=== PATIENT | male | born 1940 | race Caucasian/White ===

== ENCOUNTER 2019-08-01 12:09 | Inpatient (IN) | payer MEDICARE, BC ==
[~2019-08-01] VITALS: Ht 167.6 cm; Wt 77.1 kg
[2019-08-01 12:24] VITALS: BP 86/57
[2019-08-01 12:57] LABS: BASO % 0.3 % (0.0-1.0); EOS # 0.2 10*3/uL (0.0-0.4); EOS % 3.2 % (1.0-4.0); HEMATOCRIT 47.1 % (42.0-52.0); HEMOGLOBIN 15.7 g/dl (14.0-18.0); LYMPH # 1.4 10*3/uL (1.3-4.4); LYMPH % 19.7 % (27.0-41.0); MEAN CELL VOLUME 98.1 fl (80.0-94.0); MEAN CORPUSCULAR HGB 32.7 pg (27.0-31.0); MEAN CORPUSCULAR HGB CONC 33.3 g/dl (33.0-37.0); MEAN PLATELET VOLUME 10.1 fl (9.6-12.3); MONO # 0.6 10*3/uL (0.1-1.0); MONO % 8.7 % (3.0-9.0); NEUT # 4.7 10*3/uL (2.3-7.9); NEUT % 67.8 % (47.0-73.0); PLATELET COUNT AUTOMATED 215 10*3/uL (130-400); RED CELL DISTRI WIDTH 13.2 % (0-14.5); WHITE BLOOD COUNT 6.9 10*3/uL (4.8-10.8)
[2019-08-01 13:08] LABS: ACT PARTIAL THROMBO TIME 25.9 SECONDS (20.0-32.1); INTERNATIONAL NORM RATIO 1.3 (2.0-3.5)
[2019-08-01 13:09] LABS: ALBUMIN 3.7 gm/dl (3.1-4.5); ALKALINE PHOSPHATASE 41 U/L (45-117); BUN 29 mg/dl (7-24); CHLORIDE 103 mmol/L (98-107); CREATININE 1.11 mg/dL (0.70-1.30); LIPASE 60 U/L (73-393); POTASSIUM 4.2 mmol/L (3.5-5.1); SGOT/AST 19 IU/L (3-35); SGPT/ALT 25 U/L (12-78); SODIUM 137 mmol/L (136-145); TOTAL PROTEIN 7.3 gm/dL (6.4-8.2)
[2019-08-01 13:10] VITALS: BP 117/48
[2019-08-01 13:11] LABS: TROPONIN I < 0.015 ng/ml (<0.045)
[2019-08-01 13:23] LABS: BILIRUBIN 1+ (NEGATIVE); BLOOD NEGATIVE (NEGATIVE); CLARITY SL CLOUDY (CLEAR); COLOR YELLOW (YELLOW); GLUCOSE NEGATIVE (NEGATIVE); KETONE NEGATIVE (NEGATIVE); LEUKO ESTERASE NEGATIVE (NEGATIVE); NITRITE NEGATIVE (NEGATIVE); SPECIFIC GRAVITY 1.025 (1.005-1.030)
[2019-08-01 13:44] VITALS: BP 110/60
[2019-08-01 13:45] LABS: BACTERIA TRACE; MUCOUS 1+
--- NOTE | 2019-08-01 13:46 | NUR ---
DR JOHNSON NOTIFIED OF THE PT C/O A BURNING SENSATION ON THE LEFT SIDE OF HIS MOUTH. PT SAID ITS ABOUT A 11/03.
[2019-08-01 15:13] VITALS: BP 123/62
--- NOTE | 2019-08-01 18:05 | NUR ---
I CALLED THE RESIDENT AND ASKED HIM TO ORDER THE PATIENTS EVENING MEDS PER THE PT REQUEST. IT WAS ORDERED
--- NOTE | 2019-08-01 20:18 | NUR ---
THIS NURSE CALLED THE NURSING SUPERVISION AND TOLD HER THAT THE PT WOULD LIKE DTO HAVE AN INPATIENT BED BROUGHT DOWN TO SLEEP IN [facility]. SHE SAID SHE WOULD SEE WHAT SHE COULD DO. VERBAL UNDERSTANDING WAS NOTED FROM THE PATIENT
--- NOTE | 2019-08-01 20:40 | NUR ---
THE PATIENTS LEFT FOR THE EVENING. HE IS LYING ON THE BED RESTING. THE CALL LIGHT IS ON THE BED BESIDE HIM. NO NEW VOICED C/O. WILL CONTINUE TO MONITOR
[2019-08-01 21:09] VITALS: BP 134/55
--- NOTE | 2019-08-01 21:09 | NUR ---
A 79, admitted to 5E, under the services of EDITH Chino DO with a diagnosis of NEAR SYNCOPE. Chief complaint is GENERALIZED WEAKNESS, DIZZINESS, LOWER LIP NUMBNESS. Patient arrived via stretcher from ER. Monitor applied. Initial assessment completed. Vital signs taken and recorded. EDITH CHINO DO notified of admission to the unit. Orders received. See assessment for past medical history, medications and allergies. Patient and/or family oriented to unit. Clothing/patient valuable form completed. AGUSTÍN JO
[2019-08-01] MEDS ORDERED: AMOXICILLIN500 M2 PO (22:27)
[2019-08-01] MEDS ORDERED: CHLORHEXIDINE473 M1 PO (22:27)
[2019-08-01] MEDS ORDERED: FUROSEMIDE40 MG PO (22:28)
[2019-08-01] MEDS ORDERED: CARVEDILOL25 MG PO (22:28)
[2019-08-01] MEDS ORDERED: PRAVASTATIN SOD40 MG PO (22:31)
[2019-08-01] MEDS ORDERED: ENTRESTO 97 MG1 EACH PO (22:31)
[2019-08-01] MEDS ORDERED: COUMADIN2.5 M1 PO (22:40)
[2019-08-01] MEDS ORDERED: ASPIRIN CHEWABL81 MG PO (22:44)
[2019-08-02] VITALS: BP 90/42
[2019-08-02 01:10] VITALS: BP 98/60
[2019-08-02 04:00] VITALS: BP 90/32
--- NOTE | 2019-08-02 05:06 | NUR ---
DR BALBUENA NOTIFIED OF BP NEW ORDERS TO INCREASE FLUIDS
[2019-08-02 06:51] VITALS: BP 112/56
[2019-08-02 08:00] VITALS: BP 109/59
--- NOTE | 2019-08-02 09:03 | NUR ---
PER PATIENT'S SHE BROUGHT IN HOME DOSE OF ENTRESTO AND PATIENT TOOK IT AT 0730 THIS AM.
[2019-08-02 09:16] LABS: BASO % 0.3 % (0.0-1.0); EOS # 0.3 10*3/uL (0.0-0.4); EOS % 3.3 % (1.0-4.0); HEMATOCRIT 45.7 % (42.0-52.0); HEMOGLOBIN 15.4 g/dl (14.0-18.0); LYMPH # 1.8 10*3/uL (1.3-4.4); LYMPH % 23.3 % (27.0-41.0); MEAN CELL VOLUME 97.2 fl (80.0-94.0); MEAN CORPUSCULAR HGB 32.8 pg (27.0-31.0); MEAN CORPUSCULAR HGB CONC 33.7 g/dl (33.0-37.0); MEAN PLATELET VOLUME 9.9 fl (9.6-12.3); MONO # 0.5 10*3/uL (0.1-1.0); MONO % 6.9 % (3.0-9.0); NEUT # 5.2 10*3/uL (2.3-7.9); NEUT % 65.8 % (47.0-73.0); PLATELET COUNT AUTOMATED 197 10*3/uL (130-400); RED CELL DISTRI WIDTH 13.2 % (0-14.5); WHITE BLOOD COUNT 7.9 10*3/uL (4.8-10.8)
[2019-08-02 09:25] LABS: INTERNATIONAL NORM RATIO 1.2 (2.0-3.5)
[2019-08-02 09:28] LABS: BUN 24 mg/dl (7-24); CHLORIDE 106 mmol/L (98-107); CREATININE 0.99 mg/dL (0.70-1.30); POTASSIUM 3.8 mmol/L (3.5-5.1); SODIUM 139 mmol/L (136-145)
[2019-08-02 09:31] LABS: CHOLESTEROL 117 mg/dL (<200); TRIGLYCERIDES 144 mg/dl (<150); VLDL CHOLESTEROL 29 mg/dL (6-40)
[2019-08-02 09:39] LABS: FREE T4 0.91 ng/dl (0.76-1.46); HDL CHOLESTEROL 35 mg/dl (40-60); LDL CHOLESTEROL 53 mg/dL (9-159)
[2019-08-02 09:59] LABS: VITAMIN D, 25-HYDROXY 11.5 ng/mL (30-100)
[2019-08-02 12:00] VITALS: BP 86/58
--- NOTE | 2019-08-02 12:20 | NUR ---
Community Nutrition Educator in to talk to patient. Patient states lives at HOME with . There are FEW steps in the home. Physician: CHARLIE Pharmacy: [facility] health services: NONE Patient's level of ADLs: INDEPENDENT Patient has working utilities: YES DME: NONE Follow-up physician's appointment after d/c: WILL BE MADE BY HOSPITALIST NURSE DIRECTOR ON DISCHARGE Does patient want to access PORTAL?: NO Discharge plan PT LIVES AT HOME WITH HIS AND IS INDEPENDENT IN CARE. PT AND DENY NEEDS ON DISCHARGE. THEY ARE REQUESTING HIS RECORDS TO TAKE TO [place] WITH HIM ON WEDNESDAY TO HIS ROUTINE CARDIOLOGY APPOINTMENT. INFORMED EDINSON GUTIERREZ AND LEO BURT THAT PT IS REQUESTING A COPY OF RECORDS ON DISCHARGE. WILL CONTINUE TO FOLLOW. WILL HAVE A RIDE HOME PER PT AND .. MCKENZIE BARTLETT
--- NOTE | 2019-08-02 16:39 | NUR ---
PT DENIED NEED FOR WHEELCHAIR AND AMBULATED OFF THE FLOOR. RECORDS PROVIDED PER HIS REQUEST.
== END 2019-08-02 16:39 | disposition home or self-care (01) | DRG 315 ==
LOC: ED 12:09 → EDHOLD 15:10 → 5E 15:10
PROVIDERS: Emergency Medicine; Internal Medicine; ADMIT Internal Medicine
DX: I95.9 Hypotension, unspecified (principal); D68.59 Other primary thrombophilia; R55 Syncope and collapse; R73.9 Hyperglycemia, unspecified; I50.9 Heart failure, unspecified; E83.41 Hypermagnesemia; R00.1 Bradycardia, unspecified; E66.3 Overweight; I48.0 Paroxysmal atrial fibrillation; E78.5 Hyperlipidemia, unspecified; F41.9 Anxiety disorder, unspecified; Z95.810 Presence of automatic (implantable) cardiac defibrillator; I25.2 Old myocardial infarction; Z95.5 Presence of coronary angioplasty implant and graft; Z90.49 Acquired absence of other specified parts of digestive tract; Z95.1 Presence of aortocoronary bypass graft; Z87.891 Personal history of nicotine dependence; Z82.49 Family history of ischemic heart disease and other diseases of the circulatory system; Z80.1 Family history of malignant neoplasm of trachea, bronchus and lung; Z82.61 Family history of arthritis; Z83.3 Family history of diabetes mellitus; Z82.0 Family history of epilepsy and other diseases of the nervous system; Z79.82 Long term (current) use of aspirin; Z79.899 Other long term (current) drug therapy; Z79.01 Long term (current) use of anticoagulants; Z68.27 Body mass index [BMI] 27.0-27.9, adult

== ENCOUNTER 2021-11-02 12:50 | Emergency (ER) | payer MEDICARE, BC ==
[~2021-11-02] VITALS: Ht 167.6 cm; Wt 74.8 kg
[~2021-11-02 12:50] MED LIST: AMOXICILLIN500 M2 PO; ASPIRIN CHEWABL81 MG PO; CARVEDILOL25 MG PO; CHLORHEXIDINE473 M1 PO; COUMADIN2.5 M1 PO; ENTRESTO 97 MG1 EACH PO; FUROSEMIDE40 MG PO; PRAVASTATIN SOD40 MG PO
[2021-11-02 13:17] LABS: BASO % 0.1 % (0.0-1.0); EOS # 0.1 10*3/uL (0.0-0.4); EOS % 0.8 % (1.0-4.0); HEMATOCRIT 40.4 % (42.0-52.0); LYMPH # 1.6 10*3/uL (1.3-4.4); LYMPH % 16.8 % (27.0-41.0); MEAN CELL VOLUME 95.1 fl (80.0-94.0); MEAN CORPUSCULAR HGB 30.4 pg (27.0-31.0); MEAN CORPUSCULAR HGB CONC 31.9 g/dl (33.0-37.0); MEAN PLATELET VOLUME 9.1 fl (9.6-12.3); MONO # 0.9 10*3/uL (0.1-1.0); MONO % 9.3 % (3.0-9.0); NEUT # 6.7 10*3/uL (2.3-7.9); NEUT % 72.5 % (47.0-73.0); PLATELET COUNT AUTOMATED 224 10*3/uL (130-400); RED BLOOD COUNT 4.25 10*6/uL (4.50-5.90); RED CELL DISTRI WIDTH 16.3 % (0-14.5); WHITE BLOOD COUNT 9.2 10*3/uL (4.8-10.8)
[2021-11-02 13:29] LABS: ACT PARTIAL THROMBO TIME 32.8 SECONDS (20.0-32.1)
[2021-11-02 13:33] LABS: ALBUMIN 3.2 gm/dl (3.1-4.5); CREATININE 1.51 mg/dL (0.70-1.30); POTASSIUM 4.7 mmol/L (3.5-5.1); TOTAL PROTEIN 7.8 gm/dL (6.4-8.2)
== END 2021-11-02 16:34 | disposition home or self-care (01) ==
LOC: ED 12:50
PROVIDERS: Nurse Practitioner Family
DX: R55 Syncope and collapse (principal); R53.1 Weakness; I10 Essential (primary) hypertension; Z79.899 Other long term (current) drug therapy; Z79.82 Long term (current) use of aspirin; Z79.01 Long term (current) use of anticoagulants; Z87.891 Personal history of nicotine dependence

== ENCOUNTER → 2021-11-17 | Outpatient (CLI) | payer MEDICARE, BC | END | disposition home or self-care (01) | LOC: COVID19 15:48 → NROPP 15:48 | PROVIDERS: ATTEND Student in an Organized Health Care Education/Training Program | DX: Z11.52 Encounter for screening for COVID-19 (principal) ==